=== PATIENT | male | born 1960 | race Caucasian/White ===

== ENCOUNTER 2020-12-10 15:29 | Outpatient (CLI) | payer OTHER | END 2020-12-10 15:30 | disposition home or self-care (01) | LOC: COV 15:29 | PROVIDERS: ATTEND Family Medicine | DX: Z20.822 Contact with and (suspected) exposure to COVID-19 (principal) ==

== ENCOUNTER 2021-05-21 12:25 | Emergency (ER) | payer OTHER ==
[2021-05-21] MEDS ORDERED: IPRATROPIUM/ALBUTEROL 3 ML NEB INH STA (13:10)
[2021-05-21] MEDS ORDERED: BENZONATATE 100 MG CAPSULE PO STA (13:10)
--- NOTE | 2021-05-21 13:12 | ED Physician Documentation ---
History of Present Illness - Stated complaint Stated Complaint: FEVER - Chief complaint Chief Complaint: Heent - History obtained from History obtained from: Patient - Additonal information Additional information: 60-year-old gentleman with history of hypertension and type 2 diabetes, has never been "rubber stamped" he says with COPD but does take inhalers ever since he had the flu a few years ago and is a longstanding smoker. He has been sick for about 3 days with cough productive of yellow sputum, nasal congestion, sore throat, some shortness of breath. Had a fever at home of 102.5. He noted a room air saturation of 87% at the drugstore. He is fully vaccinated and boosted against COVID. Review of Systems Ten Systems: 10 systems reviewed and negative Constitutional: reports: Fever, Chills Nose: reports: Rhinorrhea / runny nose, Congestion Cardiac: denies: Chest pain / pressure, Palpitations Respiratory: reports: Dyspnea, Cough PD PAST MEDICAL HISTORY - Present Medications Home Medications: Ambulatory Orders Medication Instructions Recorded Confirmed Albuterol Sulfate [Proair Hfa 2 puffs INH Q4HR PRN 05/21/21 05/21/21 Inhaler] Doxycycline Hyclate 100 mg PO BID #14 tab.sr 05/21/21 Glycopyrrolate/Formoterol Fum 2 puffs INH BID 05/21/21 05/21/21 [Bevespi Aerosphere Inhaler] Losartan/Hydrochlorothiazide 1 tab PO DAILY 05/21/21 05/21/21 [Losartan-Hctz 100-12.5 mg Tab] Naproxen [EC-Naproxen] 500 mg PO BID PRN 05/21/21 05/21/21 Semaglutide [Ozempic] 0.2 ml SQ Q7D 05/21/21 05/21/21 guaiFENesin/CODEINE [Robitussin AC] 5 - 10 ml PO Q6H PRN #120 ml 05/21/21 hydrOXYzine HCL [Hydroxyzine HCl] 25 mg PO HS PRN 05/21/21 05/21/21 predniSONE [Deltasone] 20 mg PO [id number] #21 tab 05/21/21 - Allergies Allergies/Adverse Reactions: Allergies Allergy/AdvReac Type Severity Reaction Status Date / Time No Known Drug Allergies Allergy Verified 05/21/21 12:47 PD ED PE NORMAL - Vitals Vital signs reviewed: Yes - General General: Alert and oriented X 3, No acute distress - HEENT HEENT: PERRL, EOMI - Neck Neck: Supple, no meningeal sign, No bony TTP - Cardiac Cardiac: RRR, No murmur - Respiratory Respiratory: No respiratory distress, Other (Mildly diminished throughout, rhonchorous at both bases, worse in the right than the left and wheezy at the apices.) - Derm Derm: No rash - Extremities Extremities: No edema, No calf tenderness / cord - Neuro Neuro: Alert and oriented X 3, Normal speech Results - Vitals Vitals: Vital Signs - 24 hr 05/21/21 05/21/21 05/21/21 12:40 13:32 14:34 Temperature 37.5 C 37.3 C Heart Rate 98 86 85 Respiratory 22 18 18 Rate Blood Pressure 164/74 H 165/72 H O2 Saturation 93 93 Oxygen O2 Source Room air - Labs Labs: Laboratory Tests 05/21/21 05/21/21 05/21/21 13:18 13:20 13:20 WBC 14.2 H RBC 5.33 Hgb 15.6 Hct 45.1 MCV 84.6 MCH 29.3 MCHC 34.6 RDW 13.2 Plt Count 220 MPV 10.0 Neut # (Auto) 10.8 H Lymph # (Auto) 1.6 [place] # (Auto) 1.5 H Eos # (Auto) 0.1 Baso # (Auto) 0.1 Absolute Nucleated RBC 0.00 Nucleated RBC % 0.0 Sodium 133 L Potassium 3.5 Chloride 97 L Carbon Dioxide 25 Anion Gap 11.0 BUN 15 Creatinine 0.7 Estimated GFR (MDRD) 114 Glucose 199 H Calcium 8.9 Nasal Adenovirus (PCR) NOT DETECTED Nasal B. parapertussis DNA (PCR) NOT DETECTED Nasal Coronavir 229E PCR NOT DETECTED Nasal Coronavir HKU1 PCR NOT DETECTED Nasal Coronavir NL63 PCR NOT DETECTED Nasal Coronavir OC43 PCR NOT DETECTED Nasal Enterovir/Rhinovir PCR DETECTED A Nasal Influenza B PCR NOT DETECTED Nasal Influenza A PCR NOT DETECTED Nasal Parainfluen 1 PCR NOT DETECTED Nasal Parainfluen 2 PCR NOT DETECTED Nasal Parainfluen 3 PCR NOT DETECTED Nasal Parainfluen 4 PCR NOT DETECTED Nasal RSV (PCR) NOT DETECTED Nasal B.pertussis DNA PCR NOT DETECTED Nasal C.pneumoniae (PCR) NOT DETECTED [place] Human Metapneumo PCR NOT DETECTED Nasal M.pneumoniae (PCR) NOT DETECTED Nasal SARS-CoV-2 (PCR) NOT DETECTED - Rads (name of study) 1v Radiology: EMP read contemporaneously (Bibasilar atypical pneumonia) PD MEDICAL DECISION MAKING - ED course ED course: 60-year-old gentleman who uses inhalers but no formal diagnosis of COPD presents with what sounds like a COPD exacerbation. He was feeling better after al buterol neb here and found to have an elevated white blood cell count and evidence of rhinovirus on bio fire panel as well as an atypical pneumonia on x- ray. He is treated with doxycycline and prednisone pending follow-up. He had some borderline oxygen saturations here but refused admission. Departure - Departure Disposition: 01 Home, Self Care Clinical Impression: COPD (chronic obstructive pulmonary disease) Pneumonia Qualifiers: Pneumonia type: due to unspecified organism Laterality: bilateral Lung location: lower lobe of lung Qualified Code(s): J18.9 - Pneumonia, unspecified organism Condition: Good Record reviewed to determine appropriate education?: Yes Instructions: Emphysema Dc, Pneumonia Dc Prescriptions: predniSONE [Deltasone] 20 mg PO [id number] #21 tab Doxycycline Hyclate 100 mg PO BID #14 tab.sr guaiFENesin/CODEINE [Robitussin AC] 5 - 10 ml PO Q6H PRN #120 ml PRN Reason: Cough Comments: Darius, you have a case of pneumonia, probably from rhinovirus. You were negative for Covid. You do have a little bit of an elevated white blood cell counts and probably seems reasonable to treat you with antibiotics as well. If you can quit smoking that would be fantastic. Return if worsening and follow-up with your doctor, next available appointment. I sent your prescriptions electronically to [facility] in [place]. Do not drink or drive while taking codeine cough syrup.
[2021-05-21 13:27] LABS: BASOPHILS # (AUTO) 0.1 10^3/uL (0.0-0.1); BASOPHILS % (AUTO) 0.7 %; EOSINOPHILS # (AUTO) 0.1 10^3/uL (0.0-0.7); EOSINOPHILS % (AUTO) 0.7 %; HCT - HEMATOCRIT 45.1 % (42.0-52.0); HGB - HEMOGLOBIN 15.6 g/dL (14.0-18.0); LYMPHOCYTES # (AUTO) 1.6 10^3/uL (1.5-3.5); LYMPHOCYTES % (AUTO) 11.3 %; MEAN CORPUSCULAR HEMOGLOBIN 29.3 pg (27.0-31.0); MEAN CORPUSCULAR HGB CONC 34.6 g/dL (32.0-36.0); MEAN CORPUSCULAR VOLUME 84.6 fL (80.0-94.0); MONOCYTES # (AUTO) 1.5 10^3/uL (0.0-1.0); MONOCYTES % (AUTO) 10.2 %; NEUTROPHILS # (AUTO) 10.8 10^3/uL (1.5-6.6); NEUTROPHILS % (AUTO) 76.5 %; PLT - PLATELET COUNT 220 10^3/uL (130-450); RED BLOOD COUNT 5.33 10^6/uL (4.70-6.10); RED CELL DISTRIBUTION WIDTH 13.2 % (12.0-15.0); WHITE BLOOD COUNT 14.2 x10^3/uL (4.8-10.8)
[2021-05-21 13:39] LABS: CALCIUM 8.9 mg/dL (8.5-10.3); CREATININE 0.7 mg/dL (0.6-1.2); POTASSIUM 3.5 mmol/L (3.5-5.0)
--- NOTE | 2021-05-21 14:23 | XRAY Report ---
PROCEDURE: Chest 1 View X-Ray INDICATIONS: dyspnea, cough TECHNIQUE: One view of the chest was acquired. COMPARISON: None FINDINGS: Surgical changes and devices: None. Lungs and pleura: No pleural effusions or pneumothorax. Diffuse interstitial prominence with patchy ill-defined bibasilar opacities. No focal consolidations. Mediastinum: Mediastinal contours appear normal. Heart size is normal. Bones and chest wall: No suspicious bony lesions. Overlying soft tissues appear unremarkable. IMPRESSION: Diffuse interstitial prominence with patchy ill-defined bibasilar opacities. Findings may represent m ultifocal airspace disease/pneumonia with atypical organism or viral etiology most likely. No focal c onsolidation. Recommend follow-up chest radiograph 6-8 weeks after treatment to document resolution o f findings. Reviewed by: Semaj Grossman MD on 05/21/2021 2:22 PM PST Approved by: Semaj Grossman MD on 05/21/2021 2:22 PM PST Station ID: [id number]
[2021-05-21 14:29] LABS: CORONAVIRUS 229E-RESP PCR NOT DETECTED; CORONAVIRUS HKU1-RESP PCR NOT DETECTED; CORONAVIRUS NL63-RESP PCR NOT DETECTED; CORONAVIRUS OC43-RESP PCR NOT DETECTED; HUMAN METAPNEUMOVIRUS NOT DETECTED; INFLUENZA A- RESP PCR PANEL NOT DETECTED; INFLUENZA B - RESP PCR PANEL NOT DETECTED; PARAINFLUENZA VIRUS 1 NOT DETECTED; PARAINFLUENZA VIRUS 2 NOT DETECTED; PARAINFLUENZA VIRUS 3 NOT DETECTED; PARAINFLUENZA VIRUS 4 NOT DETECTED; RHINOVIRUS/ENTEROVIRUS DETECTED; RSV- RESP PCR PANEL NOT DETECTED; SARS-CoV-2 -RESP PCR PANEL NOT DETECTED
[2021-05-21 14:30] LABS: B. PARAPERTUSSIS- RESP PCR PAN NOT DETECTED; B. PERTUSSIS- RESP PCR PANEL NOT DETECTED; C. PNEUMONIAE- RESP PCR PANEL NOT DETECTED; M. PNEUMONIAE- RESP PCR PANEL NOT DETECTED
[2021-05-21 14:35] VITALS: BP 165/72
== END 2021-05-21 14:39 | disposition home or self-care (01) ==
LOC: ED 12:25
DX: J44.1 Chronic obstructive pulmonary disease with (acute) exacerbation (principal); J18.9 Pneumonia, unspecified organism; Z20.822 Contact with and (suspected) exposure to COVID-19
CPT/HCPCS: 0202U; 36415; 71045; 80048; 85025; 94640; 94664; 99284; A9270